=== PATIENT | female | born 1950 | race Caucasian/White ===

== ENCOUNTER → 2016-08-17 | Outpatient (CLI) | payer OTHER, BC ==
[~2016-08-17] MED LIST: ASPI325T PO; BISO5TAB13 PO; LANS30CA58 PO; LEVO100T12 PO; LISI-126 PO; OXYC-541 PO; SIMV20TA80 PO; TRIA1TAB3 PO
--- NOTE | 2016-08-17 15:53 | DI ---
Indication: ITS.REASON: M72.2 Plantar fascial fibromatosis, M21.40 Flat foot, M65.9 PROCEDURE: CT LOWER EXTREMITY LT W/O CONT: Encounter: Initial Comparison: Left ankle MRI dated December 09, 2015 Technique: Axial noncontrast CT imaging through the left ankle was performed with coronal and sagittal two-dimensional reformats and three-dimensional surface shaded volume rendered imaging. Automated Exposure Control and Iterative Reconstruction dose reducing techniques were utilized. Findings: Prior osteotomy within the calcaneus with a traversing partially threaded cannulated screw. There are corticated margins along the osteotomy site on both sides and no evidence of significant bridging callus or periostitis to suggest healing. There is no significant lucency around the screw tract to suggest loosening or infection. No acute fracture identified. There is a suture anchor present within the medial aspect of the navicular bone. Tibiotalar joint space is maintained. There is induration in the region of the tibialis posterior tendon. Recommend correlation for any prior surgical intervention. This tendon was torn on prior MRI. Soft tissues are otherwise grossly unremarkable. Impression: Well-corticated fracture margins along the calcaneal osteotomy site. Recommend correlation with the date of patient's surgery. If the surgery was greater than six months ago, this would be consistent with a nonunion. .
== END ==
LOC: IMA 15:03
PROVIDERS: ATTEND Podiatrist Foot & Ankle Surgery
DX: R93.7 Abnormal findings on diagnostic imaging of other parts of musculoskeletal system (principal); Z98.890 Other specified postprocedural states; M72.2 Plantar fascial fibromatosis; M65.9 Synovitis and tenosynovitis, unspecified